=== PATIENT | male | born 1940 | race Caucasian/White ===

== ENCOUNTER → 2018-02-22 | Outpatient (CLI) | payer OTHER ==
[~2018-02-22] MED LIST: ASPIRIN81 M1; LIPITOR10 MG; LISINOPRIL10 MG; NAPROXEN500 MG; PRILOSEC20 MG
[2018-02-22 10:07] LABS: BASO % 0.4 % (0.0-1.0); EOS # 0.4 10*3/uL (0.0-0.4); EOS % 4.7 % (1.0-4.0); HEMATOCRIT 45.8 % (42.0-52.0); HEMOGLOBIN 14.8 g/dl (14.0-18.0); LYMPH # 1.1 10*3/uL (1.3-4.4); LYMPH % 12.9 % (27.0-41.0); MEAN CELL VOLUME 97.9 fl (80.0-94.0); MEAN CORPUSCULAR HGB 31.6 pg (27.0-31.0); MEAN CORPUSCULAR HGB CONC 32.3 g/dl (33.0-37.0); MEAN PLATELET VOLUME 10.6 fl (9.6-12.3); MONO # 0.8 10*3/uL (0.1-1.0); NEUT # 5.9 10*3/uL (2.3-7.9); NEUT % 71.5 % (47.0-73.0); PLATELET COUNT AUTOMATED 234 10*3/uL (130-400); RED BLOOD COUNT 4.68 10*6/uL (4.50-5.90); RED CELL DISTRI WIDTH 13.1 % (0-14.5); WHITE BLOOD COUNT 8.2 10*3/uL (4.8-10.8)
[2018-02-22 10:39] LABS: ALKALINE PHOSPHATASE 93 U/L (45-117); BUN 23 mg/dl (7-24); CHLORIDE 106 mmol/L (98-107); CHOLESTEROL 156 mg/dL (<200); CREATININE 1.24 mg/dL (0.70-1.30); HDL CHOLESTEROL 53 mg/dl (40-60); LDL CHOLESTEROL 85 mg/dL (9-159); POTASSIUM 4.2 mmol/L (3.5-5.1); SGOT/AST 18 IU/L (3-35); SGPT/ALT 20 U/L (12-78); SODIUM 140 mmol/L (136-145); T3 UPTAKE 37 % (31-39); TOTAL PROTEIN 7.4 gm/dL (6.4-8.2); TRIGLYCERIDES 89 mg/dl (<150); VLDL CHOLESTEROL 18 mg/dL (6-40)
[2018-02-22 10:43] LABS: THYROXINE (T4) TOTAL 10.6 ug/dl (4.5-12.1)
== END | disposition home or self-care (01) ==
LOC: LAB 09:37
PROVIDERS: Internal Medicine
DX: Z12.5 Encounter for screening for malignant neoplasm of prostate (principal); I11.9 Hypertensive heart disease without heart failure; E78.2 Mixed hyperlipidemia; E03.9 Hypothyroidism, unspecified; E55.9 Vitamin D deficiency, unspecified; E29.0 Testicular hyperfunction; R53.82 Chronic fatigue, unspecified

== ENCOUNTER → 2023-06-06 | Outpatient (CLI) | payer MEDICARE ==
[2023-06-06 11:49] LABS: BASO # 0.1 10*3/uL (0.0-0.1); BASO % 0.5 % (0.0-1.0); EOS # 0.5 10*3/uL (0.0-0.4); EOS % 5.2 % (1.0-4.0); HEMATOCRIT 41.9 % (42.0-52.0); LYMPH % 11.1 % (27.0-41.0); MEAN CORPUSCULAR HGB CONC 31.7 g/dl (33.0-37.0); MEAN PLATELET VOLUME 10.1 fl (9.6-12.3); MONO # 0.9 10*3/uL (0.1-1.0); NEUT # 6.7 10*3/uL (2.3-7.9); NEUT % 72.7 % (47.0-73.0); PLATELET COUNT AUTOMATED 270 10*3/uL (130-400); RED BLOOD COUNT 4.15 10*6/uL (4.50-5.90); RED CELL DISTRI WIDTH 12.8 % (0-14.5); WHITE BLOOD COUNT 9.2 10*3/uL (4.8-10.8)
== END | disposition home or self-care (01) ==
LOC: LAB 11:25
PROVIDERS: ATTEND Surgery
DX: K21.9 Gastro-esophageal reflux disease without esophagitis (principal); K92.1 Melena

== ENCOUNTER → 2023-09-05 | Outpatient (CLI) | payer OTHER | END | disposition home or self-care (01) | LOC: RAD 12:05 | PROVIDERS: ATTEND Internal Medicine | DX: M25.552 Pain in left hip (principal) ==

== ENCOUNTER → 2023-09-21 | Outpatient (CLI) | payer OTHER | END | disposition home or self-care (01) | LOC: MRI 01:10 | PROVIDERS: ATTEND Internal Medicine | DX: S73.192A Other sprain of left hip, initial encounter (principal); M16.12 Unilateral primary osteoarthritis, left hip; R60.9 Edema, unspecified; M25.852 Other specified joint disorders, left hip; X58.XXXA Exposure to other specified factors, initial encounter; Y93.89 Activity, other specified; Y92.89 Other specified places as the place of occurrence of the external cause; Y99.8 Other external cause status ==

== ENCOUNTER 2024-02-26 10:35 | Emergency (ER) | payer MEDICARE ==
[~2024-02-26] VITALS: Ht 167.6 cm; Wt 54.4 kg
[2024-02-27] MEDS ORDERED: ATORVASTATIN CA40 M1 PO (15:03)
[2024-02-27] MEDS ORDERED: CLOPIDOGREL75 MG PO (15:03)
== END 2024-02-26 14:03 | disposition left against medical advice (07) ==
LOC: ED 10:35
DX: R53.1 Weakness (principal); M79.601 Pain in right arm; Z53.21 Procedure and treatment not carried out due to patient leaving prior to being seen by health care provider

== ENCOUNTER → 2024-03-20 | Outpatient (CLI) | payer MEDICARE ==
[~2024-03-20] MED LIST changes: +ATORVASTATIN CA40 M1 PO; +CLOPIDOGREL75 MG PO
== END | disposition home or self-care (01) ==
LOC: US 10:24
PROVIDERS: ATTEND Student in an Organized Health Care Education/Training Program
DX: I65.23 Occlusion and stenosis of bilateral carotid arteries (principal)

== ENCOUNTER → 2024-05-16 | Outpatient (CLI) | payer MEDICARE | END | disposition home or self-care (01) | LOC: US 09:00 | PROVIDERS: ATTEND Physician Assistant | DX: I65.23 Occlusion and stenosis of bilateral carotid arteries (principal) ==

== ENCOUNTER → 2024-05-29 | Outpatient (CLI) | payer MEDICARE ==
[~2024-05-29] MED LIST changes: +IOHEXOL 300 MG/ML 100 ML VIAL IV ONE; +IOHEXOL 350 MG/ML 100 ML VIAL IV ONE; +SODIUM CHLORIDE 0.9% 100 ML BAG IV ONE; +SODIUM CHLORIDE 0.9% 100 ML IV ONE
== END | disposition home or self-care (01) ==
LOC: CT 00:13 → US 05-30 09:30
PROVIDERS: ATTEND Physician Assistant
DX: G93.89 Other specified disorders of brain (principal); I65.23 Occlusion and stenosis of bilateral carotid arteries